=== PATIENT | female | born 1980 | race African-American/Black ===

== ENCOUNTER 2019-08-26 08:17 | Emergency (ER) | payer OTHER, SELFPAY ==
--- NOTE | ~2019-08-26 | XR_ITS ---
EXAMINATION: XR chest 2V DATE: 08/26/2019 10:11 INDICATION: Asthma presenting with the flu and shortness of breath TECHNIQUE: frontal and lateral views of the chest were obtained. COMPARISON: Chest radiograph dated 04/07/19 FINDINGS: Sensitivity decreased by body habitus. Lungs remain clear with no focal airspace opacities, pulmonary edema, pleural effusion or pneumothorax. Heart size accounting for AP technique. Mild thoracolumbar levocurvature with mild to moderate spondy losis. IMPRESSION: 1. Borderline heart size with no acute cardiopulmonary disease. Reviewed, dictated and finalized at location A. NFIELD REDEVELOPMENT SPECIALIST
[2019-08-26 08:31] VITALS: BP 149/88; PULSE 116; RESP 24; TEMP 39.3; O2SAT 97
[2019-08-26 09:02] VITALS: O2SAT 97
--- NOTE | 2019-08-26 09:30 | ED.GENADULT ---
HPI - General Adult General Chief complaint: Fever Stated complaint: fever/body aches Time Seen by Provider: 08/26/19 08:59 Source: patient Mode of arrival: ambulatory Limitations: no limitations History of Present Illness HPI narrative: Patient is here for worsening symptoms of fever and body ache, shortness of breath with no relief from her albuterol nebulizer. Patient states that she developed fever and body aches late Thursday evening. 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 She states that she continues to be able to eat and drink. She took some Tylenol for fever last evening approximately 11:30 PM. Onset (ago): day(s) Severity: moderate Relieving factors: none Associated symptoms: denies other symptoms Treatments prior to arrival: NSAID Related Data Home Medications Medication Instructions Recorded Confirmed Advair HFA 08/26/19 albuterol sulfate 08/26/19 albuterol sulfate INHALATION 08/26/19 furosemide 08/26/19 Allergies Allergy/AdvReac Type Severity Reaction Status Date / Time Shrimp Allergy Unknown THROAT Uncoded 08/26/19 08:55 SCRATCHY Review of Systems Review of Systems: All systems reviewed & are unremarkable except as noted in HPI and below [facility] Past Medical History Medical History Stroke Social History Social History (Updated 08/26/19 @ 09:33 by Katrin Batista PA-C) Smoking status: Never smoker Alcohol intake: never Substance use: never Living arrangements: with family Occupation/Education: occupation 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 Exam Const: General: alert and ill appearing Orientation/consciousness: patient oriented x3 HENMT: Head: normal to inspection Mouth: Yes dry mucous membranes Eyes: Conjunctivae: conjunctivae normal Pupils: Equal, round and reactive pupils present Neck: Neck: no lymphadenopathy Resp: Effort & Inspection: normal respiratory effort Auscultation: wheezes inspiratory wheezes and left lower Cardio: Rate: tachycardic Rhythm: regular rhythm GI: GI Palp: Yes Soft to palpation Skin: General skin exam: normal color Rashes: no rashes Neuro: General: moves all extremities Extrem: General: normal to inspection Psych: Mental Status: mental status grossly normal Course Course Emergency Course: Pt is feeling better after fluids and nebulizer treatments. Will discharge with prescriptions for Tamiflu and Medrol Dosepak. Patient states she has plenty of albuterol at home will have her treat every 4 for the next 48 hours. Take ibuprofen or Tylenol for her fever and body aches. Vital Signs Vital signs: Vital Signs Temperature 39.3 C H 08/26/19 08:31 Pulse Rate 116 H 08/26/19 08:31 Respiratory Rate 24 H 08/26/19 08:31 Blood Pressure 149/88 H 08/26/19 08:31 Pulse Oximetry 97 08/26/19 08:31 Temperature 39.3 C H 08/26/19 08:31 Pulse Rate 116 H 08/26/19 08:31 Respiratory Rate 24 H 08/26/19 08:31 Blood Pressure 149/88 H 08/26/19 08:31 Pulse Oximetry 97 08/26/19 09:02 Medical Decision Making Vital Signs Vital Signs: Vital Signs Temperature 39.3 C H 08/26/19 08:31 Pulse Rate 116 H 08/26/19 08:31 Respiratory Rate 24 H 08/26/19 08:31 Blood Pressure 149/88 H 08/26/19 08:31 Pulse Oximetry 97 08/26/19 08:31 Temperature 39.3 C H 08/26/19 08:31 Pulse Rate 116 H 08/26/19 08:31 Respiratory Rate 24 H 08/26/19 08:31 Blood Pressure 149/88 H 08/26/19 08:31 Pulse Oximetry 97 08/26/19 09:02 Lab Data Labs: Influenza A Screen Positive Reference Range: Negative Influenza B Screen Negative Reference Range: Negative Discharge Plan Discharge Clinical Impression: Influenza A Asthma Qualifiers: Asthma severity: mild Asthma persistence: intermittent Asthma complication type: with acute e
[2019-08-26] MEDS: ALBUTEROL SULFATE NEB 2.5 MG/3 ML INH INHALATION (09:40)
[2019-08-26 09:48] LABS: Basophils Percent Auto 0.4 % (0.2-1.2); Eosinophils Absolute Auto 0.1 K/mm3 (0-0.3); Hematocrit 27.9 % (37.0-47.0); Hemoglobin 9.4 g/dL (12.0-15.0); Immature Granulocyte Absolute 0.02 K/mm3 (0.00-0.031); Immature Granulocyte Percent A 0.3 % (0-0.5); Lymphocytes Absolute Auto 1.16 K/mm3 (0.9-3.2); Lymphocytes Percent Auto 16.2 % (18.3-44.2); Mean Corpuscular HGB Conc 33.7 g/dl (32-36); Mean Corpuscular Hemoglobin 22.2 pg (26-34); Mean Corpuscular Volume 65.8 fl (80-100); Mean Platelet Volume 10.1 fl (7.4-10.4); Monocytes Absolute Auto 0.7 K/mm3 (0.1-0.6); Monocytes Percent Auto 9.9 % (2.6-8.5); Neutrophils Absolute Auto 5.2 K/mm3 (1.3-6.7); Neutrophils Percent Auto 72.2 % (45.5-73.1); Platelet Count Result 234 k/mm3 (150-375); Red Blood Count 4.24 M/mm3 (4.2-5.4); Red Cell Distribution Width 19.7 % (11.5-14.5); White Blood Count 7.2 K/mm3 (4.5-10.0)
[2019-08-26 10:00] LABS: Lactic Acid 1.4 mmol/L (0.7-2.1)
[2019-08-26 10:01] LABS: Blood Urea Nitrogen 6 mg/dL (7-17); Calcium 9.1 mg/dL (8.4-10.2); Carbon Dioxide 23 mmol/L (22-30); Chloride 99 mmol/L (98-107); Estimated CRCL calculation 115 ml/min; Estimated Glomerular Filt Rate > 60; Glucose 95 mg/dL (65-105); Potassium 4.1 mmol/L (3.4-5.0); Sodium 136 mmol/L (137-145)
[2019-08-26] MEDS: SODIUM CHLORIDE 0.9% IV 1,000 ML 999 ML IV CONT (10:52)
[2019-08-26] MEDS: KETOROLAC 30 MG/ML VIAL (*BKC) IV PUSH (10:55)
[2019-08-26 10:57] VITALS: BP 140/72; PULSE 102; RESP 20; TEMP 38.7; O2SAT 100
[2019-08-26] MEDS: ALBUTEROL SULFATE NEB 2.5 MG/0.5 ML INH INHALATION (11:32)
[2019-08-26] MEDS: IPRATROPIUM BR 0.02% INH SOLN 0.5 MG/2.5 ML VIAL INHALATION (11:32)
[2019-08-26 11:35] VITALS: BP 131/75; PULSE 104; RESP 26; TEMP 38.1; O2SAT 100
[2019-08-26] MEDS: predniSONE 20 MG TABLET 40 MG PO (12:48)
[2019-08-26 13:05] VITALS: BP 137/65; PULSE 114; RESP 26; TEMP 38.1; O2SAT 95
== END 2019-08-26 13:05 | disposition home or self-care (01) ==
PROVIDERS: Physician Assistant; Emergency Provider Emergency Medicine; PCP Internal Medicine Infectious Disease
DX: J10.1 Influenza due to other identified influenza virus with other respiratory manifestations (principal); Z86.73 Personal history of transient ischemic attack (TIA), and cerebral infarction without residual deficits
CPT/HCPCS: 36415; 71046; 80048; 83605; 85025; 87804; 94640; 96361; 96374; 99284; J1885; J7030; J7512

== ENCOUNTER 2019-09-14 20:54 | Observation (INO) | payer OTHER, SELFPAY ==
--- NOTE | ~2019-09-14 | CT_ITS ---
EXAMINATION: CTA chest PE protocol DATE: 09/15/2019 02:15 INDICATION: Shortness of breath. TECHNIQUE: Computed tomography angiography (CTA) of the chest was performed with 100 mL Omnipaque-350 intravenous contrast timed to evaluate the pulmonary arteries. Coronal maximum intensity projection 3D-reconstructions were created by the technologist. Automated exposure control and iterative reconst ruction technique were employed. The dose-length product was 970.83 mGy-cm. COMPARISON: Chest 2 views 04/07/2019 FINDINGS: The lungs demonstrate mild atelectasis. There are peripheral airspace and groundglass opaci ties in superior segment and posterobasal segment of right lower lobe, consistent with infarct. There is a trace right pleural effusion. Cardiomegaly is noted. No pericardial effusion. There are pulmona ry emboli in right lower lobe and right upper lobe. There is moderate thoracic spondylosis. IMPRESSION: 1. Acute pulmonary emboli in right lower lobe and right upper lobe. Sensitivity is moderately decreas ed by obesity and motion artifact. 2. Infarct in right lower lobe. 3. Cardiomegaly. Reviewed, dictated and finalized at location A. ING LATHE TENDER IMPRESSION: 1. Acute pulmonary emboli in right lower lobe and right upper lobe. Sensitivity is moderately decreased by obesity and motion artifact. 2. Infarct in right lower lobe. 3. Cardiomegaly.
--- NOTE | ~2019-09-14 | XR_ITS ---
EXAMINATION: XR chest 2V EXAM DATE: 09/14/2019 22:24 INDICATION: Right flank pain. TECHNIQUE: Frontal and lateral projections of the chest obtained and reviewed. Comparison is made to prior examination from 08/26/2019. FINDINGS: The lungs are clear. There are no pleural effusions. The cardiomediastinal silhouette is within normal limits. There is no pneumothorax suspected. The bones and soft tissues are unremarkab le. There is no significant interval change. IMPRESSION: No acute cardiopulmonary findings. Reviewed, dictated and finalized at location A. ICAL PATHOLOGIST
--- NOTE | ~2019-09-14 | US_ITS ---
EXAMINATION: US venous doppler [facility] DATE: 09/15/2019 12:11 INDICATION: Pulmonary embolism. Bilateral lower limb swelling, right greater than left. TECHNIQUE: Grayscale ultrasound images without and with compression and Doppler ultrasound images of the bilateral lower extremity veins were obtained. COMPARISON: None. FINDINGS: The visualized portions of right common femoral vein, profunda (deep) femoral vein, popliteal vein an d greater saphenous vein outflow are patent. The right femoral vein and the veins at the right calf w ere unable to be visualized due to patient body habitus. The visualized portions of left common femoral vein, profunda femoral vein, proximal femoral vein, po pliteal vein, posterior tibial veins, gastrocnemius vein and greater saphenous vein outflow are paten t. The mid to distal right femoral vein as well as the peroneal veins at the calf were unable to be v isualized. IMPRESSION: 1. Significantly limited study due to patient body habitus with nonvisualization of the right femoral vein and the veins at the right calf are of the mid to distal left femoral vein and left peroneal ve ins at the calf. No deep venous thrombosis in the visualized veins of either lower limb. Reviewed, dictated and finalized at location A. NCIAL COUNSELOR IMPRESSION: 1. Significantly limited study due to patient body habitus with nonvisualizatio n of the right femoral vein and the veins at the right calf are of the mid to d istal left femoral vein and left peroneal veins at the calf. No deep venous thr ombosis in the visualized veins of either lower limb.
[2019-09-14 20:59] VITALS: BP 149/100; PULSE 94; RESP 20; TEMP 36.3; O2SAT 99
[2019-09-14 21:15] VITALS: BP 169/78; PULSE 89; RESP 29; TEMP 36.5; O2SAT 93
--- NOTE | 2019-09-14 21:19 | ECG_ITS ---
Measurements Intervals [place] Rate: 85 P: 49 WA: 172 QRS: 28 QRSD: 79 T: 39 QT: 352 QTc: 420 Interpretive Statements SINUS RHYTHM DELAYED PRECORDIAL R/S TRANSITION BORDERLINE ECG Electronically Signed On 09-15-2019 6:41:52 PART TIME RECEPTIONIST by aRy Hartley D.O.
[2019-09-14 21:23] VITALS: O2SAT 97
[2019-09-14 22:23] LABS: Basophils Absolute Auto 0.1 K/mm3 (0.0-0.1); Basophils Percent Auto 0.5 % (0.2-1.2); Eosinophils Absolute Auto 0.3 K/mm3 (0-0.3); Hematocrit 28.7 % (37.0-47.0); Hemoglobin 9.6 g/dL (12.0-15.0); Immature Granulocyte Absolute 0.02 K/mm3 (0.00-0.031); Immature Granulocyte Percent A 0.2 % (0-0.5); Immature Platelet Fraction Pct 5.2 % (0.9-11.2); Lymphocytes Absolute Auto 3.23 K/mm3 (0.9-3.2); Lymphocytes Percent Auto 29.3 % (18.3-44.2); Mean Corpuscular HGB Conc 33.4 g/dl (32-36); Mean Corpuscular Hemoglobin 22.6 pg (26-34); Mean Corpuscular Volume 67.7 fl (80-100); Monocytes Absolute Auto 0.7 K/mm3 (0.1-0.6); Monocytes Percent Auto 6.5 % (2.6-8.5); Neutrophils Absolute Auto 6.7 K/mm3 (1.3-6.7); Neutrophils Percent Auto 60.5 % (45.5-73.1); Platelet Count Result 185 k/mm3 (150-375); Red Blood Count 4.24 M/mm3 (4.2-5.4); Red Cell Distribution Width 21.8 % (11.5-14.5)
[2019-09-14 22:32] LABS: Blood Urea Nitrogen 10 mg/dL (7-17); Calcium 9.1 mg/dL (8.4-10.2); Carbon Dioxide 24 mmol/L (22-30); Chloride 101 mmol/L (98-107); Estimated CRCL calculation 107 ml/min; Estimated Glomerular Filt Rate > 60; Glucose 91 mg/dL (65-105); Potassium 4.1 mmol/L (3.4-5.0); Sodium 139 mmol/L (137-145)
[2019-09-14 22:36] LABS: INR 0.9
[2019-09-14 22:37] LABS: Partial Thromboplastin Time 23.8 SECONDS (22.3-36.8)
[2019-09-14 22:39] LABS: D Dimer 3.93 ug/mL (<0.48)
[2019-09-14] MEDS: KETOROLAC 30 MG/ML VIAL (*BKC) IV PUSH (22:41)
[2019-09-14 22:43] VITALS: BP 164/93; PULSE 97; RESP 26; O2SAT 100
[2019-09-14 22:43] LABS: Troponin I < 0.012 ng/mL (0.000-0.034)
--- NOTE | 2019-09-14 22:47 | ED.BACK ---
HPI - Back Pain/Injury General Chief Complaint: Back Pain/Injury <ANJELICA Rubio Last Filed: 09/15/19 03:20> Stated Complaint: right flank pain; sob <ANJELICA Rubio Last Filed: 09/15/19 03:20> Time Seen by Provider: 09/14/19 21:50 <ANJELICA Rubio Last Filed: 09/15/19 03:20> Source: patient <ANJELICA Rubio Last Filed: 09/15/19 03:20> Mode of arrival: EMS <ANJELICA Rubio Last Filed: 09/15/19 03:20> Limitations: no limitations <ANJELICA Rubio Last Filed: 09/15/19 03:20> History of Present Illness HPI Narrative: This is a 39 year old female that presents to the ER for right sided mid back pain x 1 hour. Reports sudden onset when she sat down in a chair. Reports she bent forward with worsening of pain and she was not able to get back up. Reports the pain is making her short of breath. Reports she recently got over the flu. Denies fever, congestion, cough, abdominal pain, nausea, vomiting, dysuria or hematuria. <ANJELICA Rubio Last Filed: 09/15/19 03:20> Related Data Home Medications: Home Medications Medication Instructions Recorded Confirmed albuterol sulfate 2 inh INHALATION Q6-8H PRN 08/26/19 09/15/19 albuterol sulfate 2.5 mg INHALATION Q6-8H PRN 08/26/19 09/15/19 furosemide 40 mg PO DAILY 08/26/19 09/15/19 fluticasone propion-salmeterol 2 inh INHALATION BID 09/15/19 09/15/19 <ANJELICA Rubio Last Filed: 09/15/19 03:20> Allergies/Adverse Reactions: Allergies Allergy/AdvReac Type Severity Reaction Status Date / Time Shrimp Allergy Intermediate THROAT Uncoded 09/15/19 05:32 SCRATCHY <ANJELICA Rubio Last Filed: 09/15/19 03:20> Review of Systems Review of Systems: Narrative: CONSTITUTIONAL: Denies fever ENT: Denies rhinorrhea, congestion, sore throat, or otalgia. CARDIOVASCULAR: Denies chest pain RESPIRATORY: Reports dyspnea. Denies cough GASTROINTESTINAL: Denies abdominal pain, nausea, vomiting, or diarrhea. GENITOURINARY: Denies dysuria or hematuria. MUSCULOSKELETAL: Reports back pain, joint pain, and myalgia. NEUROLOGIC: Denies numbness, or weakness. <Vashti Eaton PA-C - Last Filed: 09/15/19 03:20> All systems reviewed & are unremarkable except as noted in HPI and below <Vashti Eaton PA-C - Last Filed: 09/15/19 03:20> [facility] Past Medical History Medical History: Medical History (Updated 09/15/19 @ 03:17 by Vashti Eaton PA-C) Asthma Stroke <Vashti Eaton PA-C - Last Filed: 09/15/19 03:20> Family History Family History: Family History (Updated 09/15/19 @ 04:51 by Mili Rachel RN) Mother MS (multiple sclerosis) Father Cerebrovascular accident <Vashti Eaton PA-C - Last Filed: 09/15/19 03:20> Social History Social History: Social History (Updated 08/26/19 @ 09:33 by Katrin Batista PA-C) Smoking status: Never smoker Alcohol intake: current Substance use: never 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 HEAD: Normocephalic, atraumatic. EYES: PERRLA and EOMI. ENT: Nares clear, no rhinorrhea or epistaxis. Mucous membranes moist. Oropharynx without tonsillar hypertrophy exudate or other lesions. Bilateral TMs pearly finnegan non-bulging NECK: Supple. No adenopathy or masses. CHEST: Clear to auscultation. No respiratory distress. No wheezes rales or rhonchi HEART: Regular rate and rhythm. No murmur heard. Normal peripheral pulses. ABDOMEN: Soft, nontender, nondistended, normal active bowel sounds. BACK: Tender to palpation of right sided latissimus dorsi musculature EXTREMITIES: Normal range of motion. No edema. SKIN: Warm, dry, no
[2019-09-14 23:30] VITALS: BP 153/81; PULSE 90; RESP 20; O2SAT 98
[2019-09-15] VITALS (8 sets, daily range): BP systolic 105–164; BP diastolic 62–89; PULSE 83–95; RESP 14–27; TEMP 36.6–37.7; O2SAT 94–100; BMI 68.6
--- NOTE | 2019-09-15 | ECHO_ITS ---
Patient Info Name: Vaughn Kaur Age: 39 years : 1980 Gender: Female Ht: 60 in Wt: 350 lbs BSA: 2.72 m2 HR: 90 bpm Technical Quality: Poor Exam Date: 09/15/2019 1:33 PM Exam Location: [facility] Patient Status: Outpatient Admit Date: 09/15/2019 Staff Ordering Physician: Sky Valdez MD Trade Promotion Analyst: Jesus Hung, NADIA, RT Attending Provider: Juvencio Samuel MD Exam Type: CA echo doppler color flow Study Info Indications I26.99 - Other pulmonary embolism without acute cor pulmonale Complete two-dimensional, color flow and Doppler transthoracic echocardiogram is performed. Summary 1. Technically suboptimal study due to poor sonographic images. 2. Patient refused definity contrast. 3. Left ventricular chamber dimension is normal. 4. Left ventricular systolic function is normal, estimated at 60-65%. 5. The left ventricular diastolic function is grade I diastolic dysfunction. 6. E/e' 10 is mildly elevated. 7. Left atrial chamber dimension is mildly enlarged. 8. The aortic valve is not well visualized. 9. There is mild aortic valve stenosis based on a peak velocity of 218 cm/s, mean gradient of 9 mmHg, and aortic valve area of 1.7 cm2. Left Ventricle Patient refused definity contrast. Technically suboptimal study due to poor sonographic images. E/e' 10 is mildly elevated. Left ventricular chamber dimension is normal. Left ventricular systolic function is normal, estimated at 60-65%. The left ventricular diastolic function is grade I diastolic dysfunction. Right Ventricle Right ventricular chamber dimension is not well visualized. Left Atria Left atrial chamber dimension is mildly enlarged. Right Atria Right atrial chamber dimension is not well visualized. Aortic Valve There is mild aortic valve stenosis based on a peak velocity of 218 cm/s, mean gradient of 9 mmHg, and aortic valve area of 1.7 cm2. Cannot determine number of aortic valve leaflets. The aortic valve is not well visualized. There is no aortic valve regurgitation. Pulmonic Valve The pulmonic valve is not well visualized. Mitral Valve There is no mitral valve stenosis. There is no mitral valve regurgitation. Tricuspid Valve The tricuspid valve leaflets are not well visualized. Pericardium/Pleural There is no pericardial effusion. Inferior Vena Cava Normal inferior vena cava with >50% collapse upon inspiration consistent with normal right atrial pressure, 5 mmHg. Aorta The aortic root size at the sinus of Valsalva is normal. Left Ventricular Outflow Tract Name Value Normal LVOT 2D LVOT Diameter 1.9 cm LVOT Doppler LVOT Peak Gradient 7 mmHg LVOT Mean Gradient 3 mmHg LVOT VTI 22 cm LVOT VTI/AV VTI Ratio 0.6 LVOT Stroke Volume 61 ml LVOT CO 5.7 l/min LVOT CI 2.4 l/min/m2 Pulmonic Valve Name Va
--- NOTE | 2019-09-15 00:39 | PC.NURSE ---
pt down to ct
[2019-09-15 01:23] LABS: Add Urine Microscopic? NO; Appearance Urine Clear (Clear); Bilirubin Urine Negative (Negative); Blood Urine Negative (Negative); Color Urine Yellow (Yellow); Glucose Urine UA Negative (Negative); Ketones Urine Negative (Negative); Leukocyte Esterase Ur Negative LEU/UL (Negative); Nitrate Urine Negative (Negative); Protein Urine Negative (Negative); RBC Urine 0-2 /hpf (0-2); Specific Grav Ur 1.013 (1.001-1.035); Squamous Epithelial Cell Urine Few /hpf (Few); Urobilinogen Urine Negative mg/dL (<2.0); WBC Urine 0-3 /hpf
[2019-09-15] MEDS: ENOXAPARIN 80 MG/0.8 ML SYRINGE SUB-Q ×2 (03:25→17:04)
[2019-09-15] MEDS: ENOXAPARIN 60 MG/0.6 ML SYRINGE SUB-Q ×2 (03:25→17:04)
--- NOTE | 2019-09-15 04:35 | ADMGEN ---
This patient, Vaughn Kaur, was admitted to 3 Med Surg Room 311-01. Patient/family oriented to hospital policies and general routines including ID bracelet, bed and alarms, visiting hours, pain management, procedures, bathroom and other care routines, personal items, smoking policy, room service/diet, and visiting hours. Valuables list has been completed. Information on how to activate the Rapid Response Team has been discussed. Patient/Family are encouraged to report perceived risks to care and to ask questions if they do not understand what they are told or what they should do.
[2019-09-15] MEDS: FUROSEMIDE 40 MG TABLET PO (09:00)
--- NOTE | 2019-09-15 12:56 | PM.IMHP ---
H&P: HPI History of Present Illness Chief complaint: pulmonary embolism Narrative: Vaughn Kaur is a 39 year old female female with no significant medical history other than asthma and stroke in the he states he was doing reasonably well except for last couple of days she felt tired when she returned home yesterday from work his see was trying to sit down on the chest and felt short of breath and chest pain, symptoms were not improving getting worse patient presented emergency department further evaluation see had a CTA scan of the chest showed the patient is positive pulmonary emboli, patient states he is fairly active denies any recent travel or immobility, denies any family history of blood clots, patient is a nonsmoker she is not on any hormone therapy, to further evaluate patient had lower extremity Doppler which are negative for DVT, cardiac echo is pending patient is being treated with Lovenox, will switch her over to Eliquis tomorrow, patient will need to consult post hole digger as outpatient for further workup, patient denies any abdominal pain nausea vomiting fever or chills, Review of Systems Review of Systems: All systems reviewed & are unremarkable except as noted in HPI and below [facility] Past Medical History Medical History (Updated 09/15/19 @ 13:08 by Sky Valdez MD) Asthma Stroke Family History Family History (Updated 09/15/19 @ 04:51 by Mili Rachel RN) Mother MS (multiple sclerosis) Father Cerebrovascular accident Social History Social History (Updated 08/26/19 @ 09:33 by Katrin Batista PA-C) Smoking status: Never smoker Alcohol intake: current Substance use: never 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 Gender identity (if verbalized by the patient): Female Spiritual care concerns: No Agree to blood products: Yes Meds Home Medications and Allergies Home Medications Medication Instructions Recorded Confirmed Type albuterol sulfate 2 inh INHALATION Q6-8H PRN 08/26/19 09/15/19 History albuterol sulfate 2.5 mg INHALATION Q6-8H PRN 08/26/19 09/15/19 History furosemide 40 mg PO DAILY 08/26/19 09/15/19 History fluticasone propion-salmeterol 2 inh INHALATION BID 09/15/19 09/15/19 History Allergies Allergy/AdvReac Type Severity Reaction Status Date / Time Shrimp Allergy Intermediate THROAT Uncoded 09/15/19 05:32 SCRATCHY Vital Signs Vital Signs - 24 hr 09/14/19 20:59 09/14/19 21:15 09/14/19 21:23 Temperature 97.4 F L 97.7 F Pulse Rate 94 89 Respiratory Rate 20 29 H Blood Pressure 149/100 H 169/78 H Pulse Oximetry 99 93 97 09/14/19 22:43 09/14/19 23:30 09/15/19 01:00 Temperature Pulse Rate 97 90 87 Respiratory Rate 26 H 20 22 H Blood Pressure 164/93 H 153/81 H 153/75 H Pulse Oximetry 100 98 99 09/15/19 02:00 09/15/19 03:19 09/15/19 04:07 Temperature 98.6 F Pulse Rate 85 83 84 Respiratory Rate 27 H 20 14 Blood Pressure 164/81 H 156/85 H 105/83 Pulse Oximetry 99 100 94 09/15/19 04:15 Temperature 97.9 F Pulse Rate 83 Respiratory Rate 20 Blood Pressure 147/89 H Pulse Oximetry 95 Exam Narrative: Exam Narrative: Patient is morbidly obese with BMI of 68 Const: General: comfortable and no acute distress HENMT: General nose exam: Normal nares present Mouth: Yes moist mucous membranes Eyes: General: appearance normal, both eyes and all related structures Sclera: sclerae normal Neck: Neck: supple Resp: Other: Bilateral fair air entry with minimal rhonchi Cardio: Rate: regular rate Rhythm: regular rhythm GI: GI Palp: Yes Soft to palpation Skin: General skin exam: normal color and no rashes or lesions noted Neuro: Speech: normal speech Sensory Exam: normal sensation Extrem: Other: Patient is morbidly obese with BMI of 68 bilateral lower extremity edema Psych: Affect: Anxious affect present H&P: Results Labs Labs: Short CBC 09/14/19 Range/Units 2
[2019-09-15] MEDS: ALBUTEROL SULFATE NEB 2.5 MG/0.5 ML INH 5 MG INHALATION (14:19)
[2019-09-15] MEDS: ACETAMINOPHEN 325 MG TABLET 650 MG PO ×2 (15:50→20:51)
[2019-09-16] MEDS: ACETAMINOPHEN 325 MG TABLET 650 MG PO (05:39)
[2019-09-16 06:00] VITALS: BP 151/90; PULSE 105; RESP 22; TEMP 37.2; O2SAT 95
[2019-09-16 06:18] LABS: Basophils Percent Auto 0.4 % (0.2-1.2); Eosinophils Absolute Auto 0.2 K/mm3 (0-0.3); Eosinophils Percent Auto 1.5 % (0-4.4); Immature Granulocyte Absolute 0.05 K/mm3 (0.00-0.031); Immature Granulocyte Percent A 0.4 % (0-0.5); Immature Platelet Fraction Pct 4.4 % (0.9-11.2); Lymphocytes Absolute Auto 2.33 K/mm3 (0.9-3.2); Lymphocytes Percent Auto 20.6 % (18.3-44.2); Mean Corpuscular HGB Conc 33.3 g/dl (32-36); Mean Corpuscular Hemoglobin 22.6 pg (26-34); Mean Corpuscular Volume 67.7 fl (80-100); Mean Platelet Volume 10.2 fl (7.4-10.4); Monocytes Percent Auto 9.1 % (2.6-8.5); Neutrophils Absolute Auto 7.7 K/mm3 (1.3-6.7); Nucleated Red Blood Cells Perc 0.2 % (0.0-0.2); Platelet Count Result 168 k/mm3 (150-375); Red Blood Count 3.99 M/mm3 (4.2-5.4); Red Cell Distribution Width 21.2 % (11.5-14.5); White Blood Count 11.3 K/mm3 (4.5-10.0)
[2019-09-16 06:45] LABS: Blood Urea Nitrogen 10 mg/dL (7-17); Calcium 8.5 mg/dL (8.4-10.2); Carbon Dioxide 23 mmol/L (22-30); Chloride 102 mmol/L (98-107); Estimated CRCL calculation 132 ml/min; Estimated Glomerular Filt Rate > 60; Glucose 87 mg/dL (65-105); Potassium 4.1 mmol/L (3.4-5.0); Sodium 133 mmol/L (137-145)
[2019-09-16] MEDS: FUROSEMIDE 40 MG TABLET PO (08:21)
[2019-09-16] MEDS: ENOXAPARIN 60 MG/0.6 ML SYRINGE SUB-Q (08:22)
[2019-09-16] MEDS: ENOXAPARIN 80 MG/0.8 ML SYRINGE SUB-Q (08:22)
--- NOTE | 2019-09-16 10:31 | PM.DS ---
DS: Diagnosis Admitting Diagnosis Admitting Diagnosis: Multiple subsegmental pulmonary emboli without acute cor pulmonale Discharge Diagnosis (1) Pulmonary embolism: Qualifiers: Pulmonary embolism type: multiple subsegmental (without acute cor pulmonale) Qualified Code(s): I26.94 - Multiple subsegmental pulmonary emboli without acute cor pulmonale Code(s): I26.99 - Other pulmonary embolism without acute cor pulmonale Status: Acute Assessment and Plan: Vaughn Kaur is a 39 year old female female with no significant medical history other than asthma and stroke in the he states he was doing reasonably well except for last couple of days she felt tired when she returned home yesterday from work his see was trying to sit down on the chest and felt short of breath and chest pain, symptoms were not improving getting worse patient presented emergency department further evaluation see had a CTA scan of the chest showed the patient is positive pulmonary emboli, patient states he is fairly active denies any recent travel or immobility, denies any family history of blood clots, patient is a nonsmoker she is not on any hormone therapy, to further evaluate patient had lower extremity Doppler which are negative for DVT, cardiac echo is pending patient is being treated with Lovenox, will switch her over to Eliquis tomorrow, patient will need to consult air export agent as outpatient for further workup, patient denies any abdominal pain nausea vomiting fever or chills, (2) Stroke: Code(s): I63.9 - Cerebral infarction, unspecified Status: Acute Assessment and Plan: Patient clinically stable (3) Asthma: Code(s): J45.909 - Unspecified asthma, uncomplicated Status: Acute Assessment and Plan: Patient is clinically stable (4) Morbid (severe) obesity due to excess calories: Code(s): E66.01 - Morbid (severe) obesity due to excess calories Status: Acute Assessment and Plan: Patient will benefit from dietitian consult DS: Summary Hospital Course Reason for hospitalization: Vaughn Kaur is a 39 year old female female with no significant medical history other than asthma and stroke in the he states he was doing reasonably well except for last couple of days she felt tired when she returned home yesterday from work his see was trying to sit down on the chest and felt short of breath and chest pain, symptoms were not improving getting worse patient presented emergency department further evaluation see had a CTA scan of the chest showed the patient is positive pulmonary emboli, patient states he is fairly active denies any recent travel or immobility, denies any family history of blood clots, patient is a nonsmoker she is not on any hormone therapy, to further evaluate patient had lower extremity Doppler which are negative for DVT, cardiac echo is pending patient is being treated with Lovenox, will switch her over to Eliquis tomorrow, patient will need to consult air export agent as outpatient for further workup, patient denies any abdominal pain nausea vomiting fever or chills, Hospital Course: Vaughn Kaur is a 39 year old female female with no significant medical history other than asthma and stroke in the he states he was doing reasonably well except for last couple of days she felt tired when she returned home yesterday from work his see was trying to sit down on the chest and felt short of breath and chest pain, symptoms were not improving getting worse patient presented emergency department further evaluation see had a CTA scan of the chest showed the patient is positive pulmonary emboli, patient states he is fairly active denies any recent travel or immobility, denies any family history of blood clots, patient is a nonsmoker she is not on any hormone therapy, to further evaluate patient had lower extremity Doppler which are negativ
== END 2019-09-16 14:22 | disposition home or self-care (01) ==
LOC: ANHED 09-15 03:17 → ANH3MEDSUR 09-15 05:44
PROVIDERS: Physician Assistant; Admitting Provider Family Medicine; Emergency Provider General Practice; PCP Internal Medicine Infectious Disease; Visit Provider Family Medicine
DX: I26.94 Multiple subsegmental thrombotic pulmonary emboli without acute cor pulmonale (principal); J45.909 Unspecified asthma, uncomplicated; E66.01 Morbid (severe) obesity due to excess calories; Z68.44 Body mass index [BMI] 60.0-69.9, adult; M79.89 Other specified soft tissue disorders; Z86.73 Personal history of transient ischemic attack (TIA), and cerebral infarction without residual deficits
CPT/HCPCS: 36415; 71046; 71275; 80048; 81003; 81025; 84484; 85025; 85055; 85380; 85610; 85730; 93005; 93306; 93970; 94640; 96372; 96374; 96375; 99285; A9270; G0378; J1200; J1650; J1885; J3360; Q9967

== ENCOUNTER 2019-10-08 08:45 | Emergency (ER) | payer OTHER, SELFPAY ==
[2019-10-08 09:00] VITALS: BP 145/80; PULSE 82; RESP 16; TEMP 36.9; O2SAT 100
--- NOTE | 2019-10-08 09:02 | ED.GENADULT ---
HPI - General Adult General Chief complaint: Extremity Injury, Lower Stated complaint: Swollen left knee Time Seen by Provider: 10/08/19 09:11 Source: patient and RN notes reviewed Mode of arrival: wheelchair Limitations: no limitations History of Present Illness HPI narrative: 39-year-old -Citizen Of [place] female presents with complains of left anterior knee pain and swelling for 1 day. No treatment. Vaughn believes that pain and swelling to LT knee is related to her Eliquis. History of CVA and PE. Symptoms started in the am of 10/07/19 and increased throguhout the day and worsening this am. No known injury. No radiation of pain. No numbness or tingling, or bleeding. No loss of mobility. Exacerbating factor consist of bearing weight. No fever or chills. Denies chest pain, dyspnea, headache, recent long car rides. Denies nausea, vomiting, and abdominal pain. Remains active. Some parts of this dictation were generated by voice recognition software and may contain typographical and/or grammatical inaccuracies. Related Data Home Medications Medication Instructions Recorded Confirmed albuterol sulfate [ProAir HFA] 1 inh INHALATION QID 10/08/19 10/08/19 apixaban [Eliquis DVT-PE Treat 30D 0 mg PO PER PKG DIR 10/08/19 10/08/19 Start] fluticasone propion-salmeterol 1 inh INHALATION Q12H 10/08/19 10/08/19 [Advair Diskus] furosemide [Lasix] 40 mg PO DAILY 10/08/19 10/08/19 Allergies Allergy/AdvReac Type Severity Reaction Status Date / Time Shrimp Allergy Intermediate THROAT Uncoded 10/08/19 10:01 SCRATCHY Review of Systems Review of Systems: Narrative: CONSTITUTIONAL: Denies fever, chills, sweats. EYES: Denies visual changes, redness, discharge. ENT: Denies rhinorrhea, congestion, sore throat, otalgia. CARDIOVASCULAR: Denies chest pain, palpitations, edema. RESPIRATORY: Denies dyspnea, wheezing, cough. GASTROINTESTINAL: Denies abdominal pain, nausea, vomiting, diarrhea. GENITOURINARY: Denies dysuria, hematuria, abnormal discharge SKIN: Denies rash or itching. MUSCULOSKELETAL: Denies acute back pain or myalgia. Complains of Left knee pain and swelling. NEUROLOGIC: Denies numbness, or focal weakness. PSYCHIATRIC: Denies anxiety or depression. All other systems reviewed & are unremarkable except as noted in HPI and below. 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 There is relevant family history pertinent to the presenting complaint, see patient/family past medical history. Exam Narrative: Exam Narrative: GENERAL: This is a well-nourished, well-developed patient, in no apparent distress. Talks in full sentences and resting in wheelchair without dyspnea. HEAD: normocephalic, atraumatic. EYES: PERRL. Sclera clear/white. Vision is grossly intact. CARDIOVASCULAR: Regular rate and rhythm without murmurs, gallops, or rubs. RESPIRATORY: Clear to auscultation. Breath sounds equal bilaterally. No wheezes, rales, or rhonchi. GASTROINTESTINAL: Abdomen soft, non-tender, nondistended.
== END 2019-10-08 09:25 | disposition short-term general hospital (02) ==
PROVIDERS: Emergency Provider Nurse Practitioner Family; PCP Internal Medicine Infectious Disease
DX: I82.432 Acute embolism and thrombosis of left popliteal vein (principal); J45.909 Unspecified asthma, uncomplicated; Z86.718 Personal history of other venous thrombosis and embolism; Z86.73 Personal history of transient ischemic attack (TIA), and cerebral infarction without residual deficits; E66.01 Morbid (severe) obesity due to excess calories; Z68.44 Body mass index [BMI] 60.0-69.9, adult
CPT/HCPCS: 99212; G0463

== ENCOUNTER 2019-10-08 09:54 | Emergency (ER) | payer OTHER, SELFPAY ==
--- NOTE | ~2019-10-08 | US_ITS ---
EXAMINATION: US venous doppler [facility] DATE: 10/08/2019 10:45 INDICATION: Left lower limb pain TECHNIQUE: Grayscale ultrasound images without and with compression and Doppler ultrasound images of the left lower extremity veins were obtained. COMPARISON: 09/15/2019 FINDINGS: The visualized portions of left common femoral vein, profunda (deep) femoral vein, femoral vein, popl iteal vein, peroneal veins, posterior tibial veins, gastrocnemius vein and greater saphenous vein out flow are patent. IMPRESSION: 1. No deep venous thrombosis in the left lower limb. Reviewed, dictated and finalized at location A.
--- NOTE | ~2019-10-08 | XR_ITS ---
EXAMINATION: XR knee LT 3V DATE: 10/08/2019 10:53 INDICATION: Anterior and posterior left knee pain and swelling TECHNIQUE: Anteroposterior, oblique and crosstable lateral views of the left knee were obtained COMPARISON: None. FINDINGS: Alignment is normal. No fracture. Tricompartmental osteoarthritis at the left knee with small margin al osteophytes in the lateral compartment, moderate to large marginal osteophytes in the medial darwin rtment with at least moderate joint space narrowing (which can be underestimated on nonweightbearing imaging) and prominent marginal osteophytes at the patellofemoral compartment. Small left knee joint effusion without evident layering lipohemarthrosis. Soft tissues are unremarkable. IMPRESSION: 1. Nonspecific small left knee joint effusion which may be reactive related to the at least moderate severity tricompartmental osteoarthritis. Reviewed, dictated and finalized at location A.
[2019-10-08 09:57] VITALS: BP 152/94; PULSE 88; RESP 18; TEMP 37.2; O2SAT 100
--- NOTE | 2019-10-08 10:17 | ED.LOWEXIN ---
HPI - Extremity Injury (Lower) General Chief Complaint: Extremity Injury, Lower <Ruben Caraballo PA-C - Last Filed: 10/08/19 11:54> Stated Complaint: l knee pain <Ruben Caraballo PA-C - Last Filed: 10/08/19 11:54> Time Seen by Provider: 10/08/19 09:55 <Ruben Caraballo PA-C - Last Filed: 10/08/19 11:54> Source: patient <Ruben Caraballo PA-C - Last Filed: 10/08/19 11:54> Mode of arrival: ambulatory <Ruben Caraballo PA-C - Last Filed: 10/08/19 11:54> Limitations: no limitations <Ruben Caraballo PA-C - Last Filed: 10/08/19 11:54> History of Present Illness HPI Narrative: Patient is a 39-year-old female who presents to emergency department for evaluation of left knee and leg pain for the last several days denies injury or trauma noting that the pain is worse with activity and movement. Patient recently diagnosed with pulmonary embolus is currently on Eliquis and has been compliant with her medications <Ruben Caraballo PA-C - Last Filed: 10/08/19 11:54> Related Data Home Medications: Home Medications Medication Instructions Recorded Confirmed albuterol sulfate [ProAir HFA] 1 inh INHALATION QID 10/08/19 10/08/19 apixaban [Eliquis DVT-PE Treat 30D 0 mg PO PER PKG DIR 10/08/19 10/08/19 Start] fluticasone propion-salmeterol 1 inh INHALATION Q12H 10/08/19 10/08/19 [Advair Diskus] furosemide [Lasix] 40 mg PO DAILY 10/08/19 10/08/19 <Ruben Caraballo PA-C - Last Filed: 10/08/19 11:54> Allergies/Adverse Reactions: Allergies Allergy/AdvReac Type Severity Reaction Status Date / Time Shrimp Allergy Intermediate THROAT Uncoded 10/08/19 10:01 SCRATCHY <Ruben Caraballo PA-C - Last Filed: 10/08/19 11:54> PMFSH Past Medical History Medical History: Medical History Asthma delivery delivered Morbid (severe) obesity due to excess calories Pulmonary embolism 09/15/2019 Stroke 2012, Vaughn says unknown cause <Ruben Caraballo PA-C - Last Filed: 10/08/19 11:54> Surgical History Surgical History: Surgical History H/O section <Ruben Caraballo PA-C - Last Filed: 10/08/19 11:54> Social History Social History: Social History Smoking status: Never smoker Alcohol intake: current Substance use: never 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 Gender identity (if verbalized by the patient): Female Spiritual care concerns: No Agree to blood products: Yes <Ruben Caraballo PA-C - Last Filed: 10/08/19 11:54> Course Vital Signs Vital signs: Vital Signs Temperature 37.2 C 10/08/19 09:57 Pulse Rate 88 10/08/19 09:57 Respiratory Rate 18 10/08/19 09:57 Blood Pressure 152/94 H 10/08/19 09:57 Pulse Oximetry 100 10/08/19 09:57 Temperature 37.2 C 10/08/19 11:36 Pulse Rate 88 10/08/19 09:57 Respiratory Rate 18 10/08/19 09:57 Blood Pressure 152/94 H 10/08/19 09:57 Pulse Oximetry 100 10/08/19 09:57 <Ruben Caraballo PA-C - Last Filed: 10/08/19 11:54> Vital Signs Temperature 37.2 C 10/08/19 09:57 Pulse Rate 88 10/08/19 09:57 Respiratory Rate 18 10/08/19 09:57 Blood Pressure 152/94 H 10/08/19 09:57 Pulse Oximetry 100 10/08/19 09:57 Temperature 37.2 C 10/08/19 11:36 Pulse Rate 88 10/08/19 09:57 Respiratory Rate 18 10/08/19 09:57 Blood Pressure 152/94 H 10/08/19 09:57 Pulse Oximetry 100 10/08/19 09:57 <Roxana Patel MD - Last Filed: 10/08/19 13:02> MDM - Extremity Injury (Lower) MDM Narrative Medical decision making narrative: Patients injury or pain is consistent with musculoskeletal etiology. No signs of neurological or vascular compromise on exam. Compartments and tisues are soft without signs of compartment syn
[2019-10-08] MEDS: ACETAMINOPHEN 325 MG TABLET 650 MG PO (10:21)
[2019-10-08 11:36] VITALS: TEMP 37.2
== END 2019-10-08 12:15 | disposition home or self-care (01) ==
PROVIDERS: Emergency Provider Emergency Medicine
DX: M25.562 Pain in left knee (principal); Z86.711 Personal history of pulmonary embolism; Z79.01 Long term (current) use of anticoagulants; J45.909 Unspecified asthma, uncomplicated; E66.01 Morbid (severe) obesity due to excess calories; Z68.44 Body mass index [BMI] 60.0-69.9, adult; Z86.73 Personal history of transient ischemic attack (TIA), and cerebral infarction without residual deficits
CPT/HCPCS: 73562; 93971; 99284; A9270

== ENCOUNTER 2020-05-05 13:14 | Emergency (ER) | payer OTHER, SELFPAY ==
--- NOTE | ~2020-05-05 | XR_ITS ---
EXAMINATION: XR knee LT 2V DATE: 05/05/2020 14:03 INDICATION: Left knee pain and effusion TECHNIQUE: AP and lateral views of the left knee were obtained. COMPARISON: 10/08/2019 FINDINGS: No fracture. There is slight lateral subluxation of the tibia relative to the femur which is likely r elated to moderate tricompartmental osteoarthritis with medial compartment predominant nonuniform shoshana nt space narrowing which could be underestimated on nonweightbearing imaging. Subarticular cystic jeffrey nges are seen along the medial tibial plateau. Moderate to large marginal osteophytes in all 3 compar tments. Likely reactive moderate sized left knee joint effusion. Diffuse mild subcutaneous edema. IMPRESSION: 1. Moderate medial compartment predominant tricompartmental osteoarthritis at the left knee. Reviewed, dictated and finalized at location A. IMPRESSION: 1. Moderate medial compartment predominant tricompartmental osteoarthritis at t he left knee.
[2020-05-05 13:25] VITALS: BP 134/87; PULSE 93; RESP 16; TEMP 36.8; O2SAT 98
--- NOTE | 2020-05-05 13:56 | ED.LOWEXIN ---
HPI - Extremity Injury (Lower) General Chief Complaint: Extremity Injury, Lower Stated Complaint: left knee pain Time Seen by Provider: 05/05/20 13:32 Source: patient and RN notes reviewed Mode of arrival: ambulatory Limitations: no limitations History of Present Illness HPI Narrative: Patient presents today complaining of a 3-day history of low knee pain. 2 days ago she boarded a plane to fly to [place], but states she has been unable to walk or see any site so she flew back this morning to come to express care. Denies numbness or tingling in the extremity. She has had previous knee pain in the same affected knee in September and had a knee effusion. She did not follow-up with orthopedics. She has tried Tylenol, ibuprofen, ice, Kishan wrap without much relief. Related Data Home Medications Medication Instructions Recorded Confirmed albuterol sulfate [ProAir HFA] 1 inh INHALATION QID 10/08/19 05/05/20 Allergies Allergy/AdvReac Type Severity Reaction Status Date / Time Shrimp Allergy Intermediate THROAT Uncoded 05/05/20 13:34 SCRATCHY Review of Systems Review of Systems: Narrative: CONSTITUTIONAL: Denies body aches, fever, chills, or sweats. EYES: Denies visual changes, redness, or discharge. ENT: Denies rhinorrhea, congestion, sore throat, or otalgia. CARDIOVASCULAR: Denies chest pain, palpitations, or edema. RESPIRATORY: Denies cough or dyspnea. GASTROINTESTINAL: Denies abdominal pain, nausea, vomiting, or diarrhea. GENITOURINARY: Denies dysuria or hematuria. SKIN: Denies rash, itching, or wounds. MUSCULOSKELETAL: Denies back pain, or myalgia.+ Left knee pain NEUROLOGIC: Denies headache, numbness, tingling, or weakness. PSYCH: Denies depression or anxiety. 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 Please see nursing chart for further information. There is no relevant family history pertinent to the presenting complaint Exam Narrative: Exam Narrative: GENERAL: Well-appearing, well-nourished, and in no acute distress. HEAD: Normocephalic, atraumatic. EYES: EOMI. No redness or drainage. Conjunctivae normal. ENT: Mucous membranes pink and moist. NECK: Normal AROM. CHEST: No respiratory distress. EXTREMITIES: Left knee: Patient localizes pain to the lateral knee joint, and there is tenderness to this area. Unable to appreciate edema or effusion due to patient's body habitus. No erythema or increased warmth. No posterior or medial tenderness. SKIN: Warm, dry, no rash. Capillary refill normal. Normal skin turgor. NEURO: No focal deficits. Alert and oriented x3. Gait steady. PSYCH: Normal affect. No signs of depression or anxiety. Course Vital Signs Vital signs: Vital Signs Temperature 98.2 F 05/05/20 13:25 Pulse Rate 93 05/05/20 13:25 Respiratory Rate 16 05/05/20 13:25 Blood Pressure 134/87 05/05/20 13:25 Pulse Oximetry 98 05/05/20 13:25 Temperature 98.2 F 05/05/20 13:25 Pulse Rate 93 05/05/20
== END 2020-05-05 14:41 | disposition home or self-care (01) ==
PROVIDERS: Emergency Provider Nurse Practitioner; PCP Internal Medicine Infectious Disease
DX: M17.12 Unilateral primary osteoarthritis, left knee (principal); M25.462 Effusion, left knee; M25.762 Osteophyte, left knee; J45.909 Unspecified asthma, uncomplicated; E66.01 Morbid (severe) obesity due to excess calories; Z68.44 Body mass index [BMI] 60.0-69.9, adult; Z86.711 Personal history of pulmonary embolism; Z86.73 Personal history of transient ischemic attack (TIA), and cerebral infarction without residual deficits
CPT/HCPCS: 73560; 99213; G0463

== ENCOUNTER 2020-05-15 11:49 | Inpatient (IN) | payer OTHER, SELFPAY ==
--- NOTE | ~2020-05-15 | CT_ITS ---
EXAMINATION: CT abdomen pelvis w con EXAM DATE: 05/15/2020 14:18 INDICATION: Diffuse abdominal pain, leukocytosis . TECHNIQUE: Spiral CT of the abdomen and pelvis was performed following intravenous injection of 100 m L Omnipaque 350. Axial, coronal and sagittal images were reviewed. The dose-length product (DLP) fo r this examination was 1628.95 mGy-cm. The exposure was tailored according to patient size (auto mA exposure control), and iterative reconstruction (ASIR) was used as additional dose reduction techniqu e. There is no prior study for comparison. FINDINGS: In the left side of the pelvic inlet there are scattered small foci of free retroperitoneal gas, several other scattered foci higher up in the retroperitoneum. Portion of the inflammation is c ontiguous to the sigmoid colon, however only a few scattered diverticula are identified. There may be mild sigmoid colonic wall edema. Overall, most likely acute diverticulitis with microperforation. No other apparent explanation for the findings. No abscess. The liver, spleen, adrenal glands and pancreas are unremarkable. Gallbladder is unremarkable. No bi liary obstruction. Portal and splenic veins are patent. Kidneys enhance symmetrically. There is no hydronephrosis. The uterus is anteverted and morphologically normal. The bladder is unremarkable . There is no retroperitoneal or pelvic lymphadenopathy. Small umbilical hernia containing fat. The appendix is normal. The stomach and small bowel are unremarkable. There is expected amount of c olonic stool. No free intraperitoneal gas. Mild cardiomegaly.. The lung bases are unremarkable. The bones are unremarkable. IMPRESSION: Pelvic retroperitoneal inflammation, portion of which contiguous to sigmoid with mild sig moid edema suspected. Small scattered foci of retroperitoneal extraluminal gas. Most likely acute div erticulitis with microperforation. Reviewed, dictated and finalized at location B. [facility] IMPRESSION: Pelvic retroperitoneal inflammation, portion of which contiguous to sigmoid with mild sigmoid edema suspected. Small scattered foci of retroperito nasrin extraluminal gas. Most likely acute diverticulitis with microperforation.
[2020-05-15 11:54] VITALS: BP 140/87; PULSE 110; RESP 18; TEMP 37; O2SAT 99
--- NOTE | 2020-05-15 12:23 | ED.ABDPAIN ---
HPI - Abdominal Pain General Chief Complaint: Abdominal Pain Stated Complaint: ABD Pain Time Seen by Provider: 05/15/20 11:55 Source: patient Mode of arrival: ambulatory Limitations: no limitations History of Present Illness HPI narrative: This patient is 39 year old morbidly obese female who presents for evaluation of abdominal pain . She reports she developed epigastric pain yesterday and today she has pain in her lower abdomen as well. Her pain is worse with eating and drink. She describes her pain as sharp. She denies associated nausea, vomiting, fever, chills or diarrhea. She also denies urinary complaints. She reports she has had similar pain in the past but this pain has not resolved with pepto bismol. Related Data Home Medications Medication Instructions Recorded Confirmed albuterol sulfate [ProAir HFA] 1 inh INHALATION QID 10/08/19 05/05/20 Allergies Allergy/AdvReac Type Severity Reaction Status Date / Time shellfish derived Allergy Other Verified 05/15/20 13:46 Shrimp Allergy Intermediate THROAT Uncoded 05/15/20 13:46 SCRATCHY Review of Systems Review of Systems: All systems reviewed & are unremarkable except as noted in HPI and below Constitutional: Constitutional: Denies chills and Denies fever(s) Cardiovascular: Cardiovascular: Denies chest pain Respiratory: Respiratory: Reports dyspnea (chronic) Gastrointestinal: Gastrointestinal: Reports abdominal pain, Denies constipation, Denies diarrhea, Reports nausea and Denies vomiting Genitourinary: Genitourinary: Denies dysuria [facility] Past Medical History Medical History (Updated 05/06/20 @ 00:00 by Rubi Dadarielon) Asthma delivery delivered Morbid (severe) obesity due to excess calories Pulmonary embolism 09/15/2019 Stroke 2011, Vaughn says unknown cause Surgical History Surgical History H/O section Family History Family History Mother MS (multiple sclerosis) Father Cerebrovascular accident Social History Social History Smoking status: Never smoker Alcohol intake: current Substance use: never 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 Gender identity (if verbalized by the patient): Female Spiritual care concerns: No Agree to blood products: Yes Exam Const: General: alert Nutritional Appearance: obese Orientation/consciousness: patient oriented x3 HENMT: Head: atraumatic Face and sinus: face symmetric Eyes: EOM: EOMs intact bilaterally Chest: Chest palpation & inspection: normal inspection of the chest Resp: Effort & Inspection: normal respiratory effort and no retractions Auscultation: clear to auscultation bilaterally Cardio: Rate: tachycardic Rhythm: regular rhythm Heart sounds: no murmurs GI: GI Palp: Yes Soft to palpation, Yes Tenderness to palpation present (GI) (Diffuse), Yes Guarding due to palpation present (GI) and No Rigid due to palpation Other: guaic negative stool Skin: General skin exam: normal color Rashes: no rashes Neuro: General: patient oriented x3 and moves all extremities Course Reevaluation(s) Reevaluation #1: I Discussed with patient that she was found to have severe anemia. She reports history of anemia and she was placed on iron years ago but her doctor did not continue. She reports history of heavy menses but reports she is not currently bleeding. She also denies melena. I recommended a blood transfusion given that her blood count is low and she appears to be dyspneic with minimal exertion. I discussed risk of allowing blood count to continue to be low and she declines blood transfusion at this time. I also discussed that she was found to have diverticulitis with microperforation. She initially stated that she did not want to b
[2020-05-15 12:28] LABS: Add Urine Microscopic? NO; Appearance Urine Clear (Clear); Bilirubin Urine Negative (Negative); Blood Urine Negative (Negative); Color Urine Yellow (Yellow); Glucose Urine UA Negative (Negative); Ketones Urine Negative (Negative); Leukocyte Esterase Ur Negative LEU/UL (Negative); Nitrate Urine Negative (Negative); Protein Urine Negative (Negative); Specific Grav Ur 1.012 (1.001-1.035); Urobilinogen Urine Negative mg/dL (<2.0)
[2020-05-15 12:39] LABS: Basophils Absolute Auto 0.1 K/mm3 (0.0-0.1); Basophils Percent Auto 0.4 % (0.2-1.2); Eosinophils Absolute Auto 0.3 K/mm3 (0-0.3); Eosinophils Percent Auto 1.9 % (0-4.4); Immature Granulocyte Absolute 0.04 K/mm3 (0.00-0.031); Immature Granulocyte Percent A 0.3 % (0-0.5); Immature Platelet Fraction Pct 2.9 % (0.9-11.2); Lymphocytes Absolute Auto 2.58 K/mm3 (0.9-3.2); Lymphocytes Percent Auto 19.8 % (18.3-44.2); Mean Corpuscular HGB Conc 30.9 g/dl (32-36); Mean Corpuscular Volume 58.2 fl (80-100); Monocytes Absolute Auto 0.8 K/mm3 (0.1-0.6); Monocytes Percent Auto 5.8 % (2.6-8.5); Neutrophils Absolute Auto 9.3 K/mm3 (1.3-6.7); Neutrophils Percent Auto 71.8 % (45.5-73.1); Platelet Count Result 364 k/mm3 (150-375); Red Blood Count 3.78 M/mm3 (4.2-5.4); Red Cell Distribution Width 25.2 % (11.5-14.5)
[2020-05-15 12:44] LABS: Hemoglobin 6.8 g/dL (12.0-15.0)
[2020-05-15 12:45] LABS: Hypochromasia 3+ (NORMAL); Target Cells 2+ (NORMAL)
[2020-05-15 12:46] LABS: Schistocytes 1+ (NORMAL)
[2020-05-15 12:48] LABS: Alanine Aminotransferase 8 U/L (4-35); Albumin Level 3.8 g/dL (3.5-5.1); Alkaline Phosphatase 66 U/L (38-126); Anion Gap 6 mmol/L (8-16); Aspartate Amino Transferase 19 U/L (14-36); Bilirubin,Total 0.5 mg/dL (0.2-1.3); Blood Urea Nitrogen 7 mg/dL (7-17); Calcium 9.3 mg/dL (8.4-10.2); Carbon Dioxide 26 mmol/L (22-30); Chloride 105 mmol/L (98-107); Estimated CRCL calculation 124 ml/min; Estimated Glomerular Filt Rate > 60; Glucose 93 mg/dL (65-105); Lipase 23 U/L (23-300); Sodium 137 mmol/L (137-145)
[2020-05-15 12:49] LABS: Lactic Acid Reflex 0.7 mmol/L (0.7-2.1)
[2020-05-15 13:27] LABS: Prothrombin Time 13.5 Seconds (11.1-14.7)
[2020-05-15 13:28] LABS: Partial Thromboplastin Time 31.3 SECONDS (22.3-36.8)
[2020-05-15] MEDS: diphenhydrAMINE HCl INJ 50 MG/ML VIAL IV PUSH (13:51)
--- NOTE | 2020-05-15 13:54 | PC.NURSE ---
CT called and updated regarding shellfish allergy and that patient given IV Benadryl 50 mg per MD Abigail montoya for patient to get her CT. CT to call this RN if any other issues arise. Patient updated.
--- NOTE | 2020-05-15 13:55 | PC.NURSE ---
Pt reports hx of anemia and low blood counts, denies hx of any blood transfusions.
[2020-05-15 14:08] LABS: Iron 21 ug/dL (37-170)
[2020-05-15 14:17] LABS: Percent Iron Saturation 5 % (20-50)
--- NOTE | 2020-05-15 15:05 | PC.NURSE ---
Patient states that she does not want the ordered blood transfusion. MD and this RN spoke with patient regarding blood transfusion and lab results. Patient states that she will call her primary care doctor tomorrow regarding her low blood count. Patient also states that she does not want to be admitted into the hospital today.
[2020-05-15 15:12] VITALS: BP 150/93; RESP 16
[2020-05-15] MEDS: MORPHINE SULFATE (*CRX) 4 MG/ML INJ 6 MG IV PUSH (15:15)
[2020-05-15 15:16] LABS: Folic Acid 5.7 ng/mL (2.76->20)
[2020-05-15] MEDS: ONDANSETRON INJ 4 MG/2 ML VIAL IV PUSH (15:16)
--- NOTE | 2020-05-15 15:32 | PC.NURSE ---
Blood bank informed of patient refusal of blood transfusion. Patient now states she is willing to be admitted after speaking with her family and with MD. Patient provided with sprite, water, and crackers.
--- NOTE | 2020-05-15 16:06 | PC.NURSE ---
Report called to MYRANDA Downs.
--- NOTE | 2020-05-15 16:14 | ADMGEN ---
This patient, Vaughn Kaur, was admitted to 2 Medical Room 255-01. Patient/family oriented to hospital policies and general routines including ID bracelet, bed and alarms, visiting hours, pain management, procedures, bathroom and other care routines, personal items, smoking policy, room service/diet, and visiting hours. Information on how to activate the Rapid Response Team has been discussed. Patient/Family are encouraged to report perceived risks to care and to ask questions if they do not understand what they are told or what they should do.
[2020-05-15 16:30] VITALS: BP 142/74; PULSE 100; RESP 17; TEMP 37.3; O2SAT 99
[2020-05-15 16:35] VITALS: BMI 62.4
[2020-05-15] MEDS: SODIUM CHLORIDE 0.9% IV 1,000 ML 125 ML IV CONT (17:22)
[2020-05-15 20:43] VITALS: BP 143/60; PULSE 103; RESP 20; TEMP 37.4; O2SAT 100
--- NOTE | 2020-05-15 21:00 | PM.IMHP ---
H&P: HPI History of Present Illness Date/Time: 05/15/20 21:00 Chief complaint: Abdominal pain. Narrative: Vaughn Kaur is a a 39-year-old female with asthma, chronic anemia, morbid obesity, and history of pulmonary embolism in September 2019 presented to the emergency department earlier today via private vehicle from home for evaluation of abdominal pain. For the past 3 days or so she reports a vague aching discomfort throughout her abdomen which has settled more in the left lower quadrant recently. It is occasionally sharp or cramping in nature. It does not seem to radiate and she gives no significant aggravating or alleviating factors. She has had similar episodes in the past but not as severe as it has been today, and she has never had it evaluated previously. Additionally she has had mild aching discomfort in the epigastrium however that seemed to improve after taking Pepto-Bismol. CT of the abdomen and pelvis today showed findings consistent with probable diverticulitis and micro perforation. She was also quite anemic with a hemoglobin of 6.9 however she declined transfusion, reporting chronic anemia and no symptoms of such. She goes on to say that she has always had a heavy menstrual and that her anemia is due to that. She denies overt diarrhea. No blood or mucus in the stool. No nausea or vomiting. She has not had fever, chills, or sweats. Review of Systems Review of Systems: Narrative: Twelve systems were reviewed with pertinent positives and negatives as per HPI. No fever, chills, or sweats. No recent cold or flu symptoms. She denies cough and shortness of breath. Admits to dyspnea on exertion secondary to her weight. No acute issues with regards to her asthma. She has heavy menstruations in just finished with her menstrual cycle. She has chronic anemia but does not take iron supplements for unclear reasons. She has never had a blood transfusion. Except as documented, all other systems were reviewed and are negative. [facility] Past Medical History Medical History (Updated 05/15/20 @ 23:41 by Ailin Wade PA-C) Asthma Morbid obesity Pulmonary embolism (~09/15/19) Finished anticoagulation in March 2020. Followed by Dr. Miguel Alcantara. Stroke (~2011) No residual deficit, cause unknown. Surgical History Surgical History (Updated 05/15/20 @ 23:36 by Ailin Wade PA-C) History of section Family History Family History Mother MS (multiple sclerosis) Father Cerebrovascular accident Social History Social History (Updated 05/15/20 @ 23:37 by Ailin Wade PA-C) Social History: Surrogate decision maker: Kenny Kaur, . Code status: Full code. Smoking status: Never smoker Second hand tobacco smoke exposure: No Alcohol intake: current Substance use: never Substance use type: does not use Last use: Drinks alcohol socially and in moderation. Additional living arrangements comments: Resides in [place] with her and children. 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 Gender identity (if verbalized by the patient): Female Spiritual care concerns: Yes (Latter-Day) Agree to blood products: Yes Meds Home Medications and Allergies Home Medications Medication Instructions Recorded Confirmed Type albuterol sulfate [ProAir HFA] 1 inh INHALATION QID PRN 10/08/19 05/15/20 History fluticasone propion-salmeterol 2 inh INHALATION Q12H 05/15/20 05/15/20 History [Advair Diskus] Allergies Allergy/AdvReac Type Severity Reaction Status Date / Time iohexol Allergy Intermediate Cough Verified 05/15/20 16:34 [From contrast - CT, X-RAY] shellfish derived Allergy Other Verified 05/15/20 16:34 Shrimp Allergy Intermediate THROAT Uncoded 05/15/20 13:46 SCRATCHY Vital Signs Vital Signs - 24 hr
[2020-05-15 23:21] VITALS: TEMP 37.6
[2020-05-16] VITALS (15 sets, daily range): BP systolic 112–138; BP diastolic 50–76; PULSE 81–103; RESP 18–22; TEMP 36.6–37.2; O2SAT 97–100
[2020-05-16] MEDS: CYANOCOBALAMIN INJ 1,000 MCG/ML VIAL 1000 MCG IM (00:19)
[2020-05-16] MEDS: SODIUM CHLORIDE 0.9% IV 1,000 ML 125 ML IV CONT ×2 (02:44→16:41)
[2020-05-16 05:50] LABS: Basophils Percent Auto 0.2 % (0.2-1.2); Eosinophils Absolute Auto 0.1 K/mm3 (0-0.3); Eosinophils Percent Auto 0.5 % (0-4.4); Immature Granulocyte Absolute 0.06 K/mm3 (0.00-0.031); Immature Granulocyte Percent A 0.4 % (0-0.5); Immature Platelet Fraction Pct 2.6 % (0.9-11.2); Lymphocytes Percent Auto 17.4 % (18.3-44.2); Mean Corpuscular HGB Conc 30.8 g/dl (32-36); Mean Corpuscular Hemoglobin 18.2 pg (26-34); Mean Corpuscular Volume 59.1 fl (80-100); Mean Platelet Volume 9.8 fl (7.4-10.4); Monocytes Absolute Auto 1.4 K/mm3 (0.1-0.6); Monocytes Percent Auto 8.9 % (2.6-8.5); Neutrophils Absolute Auto 11.3 K/mm3 (1.3-6.7); Neutrophils Percent Auto 72.6 % (45.5-73.1); Nucleated Red Blood Cells Absolute Auto 0.1 K/mm3 (0.0-0.012); Nucleated Red Blood Cells Perc 0.4 % (0.0-0.2); Platelet Count Result 242 k/mm3 (150-375); Red Blood Count 3.08 M/mm3 (4.2-5.4); Red Cell Distribution Width 24.1 % (11.5-14.5); White Blood Count 15.5 K/mm3 (4.5-10.0)
[2020-05-16 05:55] LABS: Hematocrit 18.2 % (37.0-47.0); Hemoglobin 5.6 g/dL (12.0-15.0)
[2020-05-16 06:02] LABS: Alanine Aminotransferase 6 U/L (4-35); Albumin Level 3.4 g/dL (3.5-5.1); Alkaline Phosphatase 51 U/L (38-126); Anion Gap 9 mmol/L (8-16); Aspartate Amino Transferase 18 U/L (14-36); Bilirubin,Total 0.8 mg/dL (0.2-1.3); Blood Urea Nitrogen 7 mg/dL (7-17); Calcium 8.4 mg/dL (8.4-10.2); Carbon Dioxide 23 mmol/L (22-30); Chloride 106 mmol/L (98-107); Estimated CRCL calculation 98 ml/min; Estimated Glomerular Filt Rate > 60; Glucose 101 mg/dL (65-105); Potassium 3.8 mmol/L (3.4-5.0); Sodium 138 mmol/L (137-145)
--- NOTE | 2020-05-16 10:00 | PM.IMPN ---
Progress Note: A&P Assessment and Plan (1) Diverticulitis of colon with perforation: Qualifiers: Diverticulitis bleeding: unspecified bleeding status Qualified Code(s): K57.20 - Diverticulitis of large intestine with perforation and abscess without bleeding Code(s): K57.20 - Diverticulitis of large intestine with perforation and abscess without bleeding Status: Acute Assessment and Plan: Patient presents with abdominal pain; CT abdomen demonstrates findings consistent with diverticulitis with microperforation. Pain resolved this morning and she is hungry. Can trial clear liquids today but will monitor closely for worsening symptoms. General surgery consultation will be considered for any worsening symptoms. Continue IV Zosyn (day 1), supportive care with pain control and antiemetics. (2) Sepsis: Qualifiers: Sepsis type: sepsis due to unspecified organism Sepsis acute organ dysfunction status: without acute organ dysfunction Qualified Code(s): A41.9 - Sepsis, unspecified organism Code(s): A41.9 - Sepsis, unspecified organism Status: Acute Assessment and Plan: Criteria met with leukocytosis and tachycardia on arrival. Suspected source is GI. Continue IV Zosyn. Will order blood cultures although results may be altered since antibiotics have been initiated. (3) Profound anemia: Qualifiers: Anemia type: iron deficiency Iron deficiency anemia type: unspecified iron deficiency Qualified Code(s): D50.9 - Iron deficiency anemia, unspecified Code(s): D64.9 - Anemia, unspecified Status: Acute Assessment and Plan: Hgb 6.8 yesterday and patient declined transfusion. Hgb lower at 5.6 this morning. Detailed discussion held with patient this morning and she is agreeable to receiving blood today. She describes long history of anemia related to heavy menstrual cycles and her cycle just ended. Hemoccult negative in ED. Plan for 2 units packed RBC today and recheck H&H. Monitor CBC in AM and consider Venofer tomorrow. (4) Iron deficiency: Code(s): E61.1 - Iron deficiency Status: Chronic Assessment and Plan: Patient describes a long history of anemia. Notes she used to take iron supplementation but does not any longer for unclear reasons. She will benefit from iron supplementation. (5) Vitamin B12 deficiency: Code(s): E53.8 - Deficiency of other specified B group vitamins Status: Acute Assessment and Plan: B12 supplementation initiated. Follow up with PCP. (6) Asthma: Qualifiers: Asthma severity: mild Asthma persistence: intermittent Asthma complication type: uncomplicated Qualified Code(s): J45.20 - Mild intermittent asthma, uncomplicated Code(s): J45.909 - Unspecified asthma, uncomplicated Status: Chronic Assessment and Plan: No acute respiratory distress. Continue home Symbicort, albuterol as needed. (7) Morbid obesity: Code(s): E66.01 - Morbid (severe) obesity due to excess calories Status: Chronic Assessment and Plan: Healthy lifestyle modifications are encouraged. Subjective Date/time seen: 05/16/20 0900 Interval history: Ms. Kaur is a 39yo F admitted for anemia, diverticulitis. She reports feeling OK today. Did not sleep much last night. She tells me she has no abdominal pain this morning. She denies nausea or vomiting. She feels hungry. She denies dizziness, lightheadedness, or chest pain. She reports some mild shortness of breath with walking which is unchanged from her baseline. She declined blood transfusion last evening. Hgb lower this morning.
[2020-05-16] MEDS: SODIUM CHLORIDE 0.9% IV 250 ML 30 ML IV CONT (11:34)
--- NOTE | 2020-05-16 14:45 | PC.NURSE ---
On 05/16/20, the student, Eri Mcgraw, provided care and completed [facility] documentation on this patient. I have reviewed the student's documentation and agree with the findings.
[2020-05-16 15:44] LABS: Hemoglobin 6.5 g/dL (12.0-15.0)
[2020-05-16] MEDS: FLUTICASONE/SALMETEROL 230-21 MCG INHALER 1 PUFF 2 PUFF INHALATION (21:07)
[2020-05-16 21:45] LABS: Hematocrit 24.5 % (37.0-47.0); Hemoglobin 7.8 g/dL (12.0-15.0)
[2020-05-17 06:00] VITALS: BP 109/53; PULSE 100; RESP 20; TEMP 36.9; O2SAT 98
[2020-05-17 06:04] LABS: Basophils Absolute Auto 0.1 K/mm3 (0.0-0.1); Basophils Percent Auto 0.4 % (0.2-1.2); Eosinophils Absolute Auto 0.2 K/mm3 (0-0.3); Eosinophils Percent Auto 1.4 % (0-4.4); Hematocrit 23.8 % (37.0-47.0); Hemoglobin 7.7 g/dL (12.0-15.0); Immature Granulocyte Absolute 0.06 K/mm3 (0.00-0.031); Immature Granulocyte Percent A 0.4 % (0-0.5); Immature Platelet Fraction Pct 3.2 % (0.9-11.2); Lymphocytes Absolute Auto 2.72 K/mm3 (0.9-3.2); Lymphocytes Percent Auto 19.3 % (18.3-44.2); Mean Corpuscular HGB Conc 32.4 g/dl (32-36); Mean Corpuscular Hemoglobin 21.5 pg (26-34); Mean Corpuscular Volume 66.5 fl (80-100); Monocytes Percent Auto 7.3 % (2.6-8.5); Neutrophils Percent Auto 71.2 % (45.5-73.1); Nucleated Red Blood Cells Perc 0.2 % (0.0-0.2); Platelet Count Result 260 k/mm3 (150-375); Red Blood Count 3.58 M/mm3 (4.2-5.4); White Blood Count 14.1 K/mm3 (4.5-10.0)
[2020-05-17] MEDS: SODIUM CHLORIDE 0.9% IV 1,000 ML 100 ML IV CONT (07:32)
--- NOTE | 2020-05-17 09:29 | PM.DS ---
DS: Admitting Diagnosis Admitting Diagnosis Admitting Diagnosis: Abdominal pain. DS: Discharge Diagnosis Discharge Diagnosis (1) Diverticulitis of colon with perforation: Qualifiers: Diverticulitis bleeding: unspecified bleeding status Qualified Code(s): K57.20 - Diverticulitis of large intestine with perforation and abscess without bleeding Code(s): K57.20 - Diverticulitis of large intestine with perforation and abscess without bleeding Status: Acute Assessment and Plan: Date of Admission 05/15/20 Date of Discharge 05/17/20 Ms. Kaur is a pleasant 39yo F with history of asthma and anemia who presented to the ED for evaluation of abdominal pain. CT abdomen/pelvis demonstrated findings consistent with acute diverticulitis with possible microperforation. She described that she has had similar symptoms on and off over several months but had not been evaluated for such. She was treated with IV antibiotics with Zosyn. She was treated conservatively with bowel rest, antibiotics and pain control with which she responded well. She was found to be profoundly anemic on arrival with Hgb 6.8. She declined blood transfusion at that time, describing that she had a history of chronic anemia in part related to heavy menstrual cycles and she had just finished a cycle. Hgb dropped the following day to 5.6 and after a detailed discussion, patient was agreeable to receiving blood products. She described she was hesitant because she was nervous to have a reaction from the blood, however she did well with transfusion of 2 units packed RBC without issues. Hgb up to 7.8 the following day; Iron studies were consistent with iron deficiency anemia and she was treated with IV venofer x 1 on day of discharge. Her abdominal pain resolved and her diet was gradually advanced to a low fiber diet which she tolerated well. She was hemodynamically stable for discharge 05/17/20 with instructions to follow up with PCP in 1 week. She was educated on return to ER instructions if her pain returns. She was instructed to get repeat blood work in 1 week to check hemoglobin and was discharged with B12 and iron supplementation. She was discharged with oral antibiotics to complete the course. Patient presents with abdominal pain; CT abdomen demonstrates findings consistent with diverticulitis with microperforation. Pain resolved, diet gradually advanced to low fiber. Low fiber diet during acute flare then will benefit from high-fiber diet long-term to help avoid further episodes. Should she have more episodes of diverticulitis subsequently she may benefit from surgical consultation. (2) Sepsis: Qualifiers: Sepsis type: sepsis due to unspecified organism Sepsis acute organ dysfunction status: without acute organ dysfunction Qualified Code(s): A41.9 - Sepsis, unspecified organism Code(s): A41.9 - Sepsis, unspecified organism Status: Acute Assessment and Plan: Criteria met with leukocytosis and tachycardia on arrival, improved. Suspected source is GI. Treated with IV Zosyn x 2 days, discharged with oral cipro and flagyl to complete course. Blood cultures no growth to date at discharge and will be followed to final. (3) Profound anemia: Qualifiers: Anemia type: iron deficiency Iron deficiency anemia type: unspecified iron deficiency Qualified Code(s): D50.9 - Iron deficiency anemia, unspecified Code(s): D64.9 - Anemia, unspecified Status: Acute Assessment and Plan: Hgb 6.8 on arrival and patient declined transfusion. Hgb lower at 5.6 05/16 and she was agreeable at that time to receiving 2 units packed RBC. Hgb improved to 7.8 prior to discharge. Repeat labs 1 week, follow up with PCP. (4) Iron deficiency: Code(s): E61.1 - Iron d
[2020-05-17] MEDS: IRON SUCROSE COMPLEX 200 MG in SODIUM CHLORIDE 0.9% IV 50 ML 120 MG IVPB (09:39)
[2020-05-17] MEDS: FLUTICASONE/SALMETEROL 230-21 MCG INHALER 1 PUFF 2 PUFF INHALATION ×2 (11:00)
[2020-05-17] MEDS: ALBUTEROL SULFATE (*SP) AEROSOL 1 PUFF INHALATION (14:30)
== END 2020-05-17 16:35 | disposition home or self-care (01) | DRG 872 ==
LOC: ANHED 12:34 → ANH2MED 16:15
PROVIDERS: Physician Assistant; Admitting Provider Family Medicine; Emergency Provider General Practice; PCP Internal Medicine Infectious Disease; Visit Provider Physician Assistant
DX: A41.9 Sepsis, unspecified organism (principal); K57.20 Diverticulitis of large intestine with perforation and abscess without bleeding; Z68.44 Body mass index [BMI] 60.0-69.9, adult; J45.909 Unspecified asthma, uncomplicated; D64.9 Anemia, unspecified; D50.9 Iron deficiency anemia, unspecified; E53.8 Deficiency of other specified B group vitamins; J45.20 Mild intermittent asthma, uncomplicated; E66.01 Morbid (severe) obesity due to excess calories; Z86.73 Personal history of transient ischemic attack (TIA), and cerebral infarction without residual deficits; Z86.711 Personal history of pulmonary embolism
CPT/HCPCS: 36415; 36430; 74177; 80053; 81003; 81025; 82607; 82728; 82746; 83540; 83550; 83605; 83690; 85014; 85018; 85025; 85055; 85610; 85730; 86850; 86900; 86901; 86923; 87040; 94640; 96365; 96375; 99285; A9270; J0131; J1200; J1756; J2270; J2405; J2543; J3420; J7030; J7050; P9016; Q9967